=== PATIENT | female | born 1935 | race Caucasian/White ===

== ENCOUNTER 2018-10-07 13:16 | Emergency (ER) | payer OTHER ==
[~2018-10-07] VITALS: Ht 160 cm; Wt 46.7 kg
[~2018-10-07 13:16] MED LIST: ASPIRIN81 M1 PO; ATIVAN0.5 M1 PO; METROPOLOL; PLAVIX75 MG PO; SYNTHROID88 MCG PO; SYNTROID; TERAPIA ALBUTEROL
== END 2018-10-07 17:11 | disposition home or self-care (01) ==
LOC: ER 13:16
DX: M25.552 Pain in left hip (principal); M25.551 Pain in right hip